=== PATIENT | female | born 1960 | race Caucasian/White ===

== ENCOUNTER 2016-09-12 05:51 | Inpatient (IN) | payer OTHER ==
[2016-09-02 07:32] VITALS: BP 148/100
[~2016-09-12] VITALS: Ht 160 cm; Wt 86.9 kg
[~2016-09-12 05:51] MED LIST: None at this time
[2016-09-12] MEDS ORDERED: LACTATED RINGERS 1,000 ML IV SCH (06:21)
[2016-09-12] MEDS ORDERED: GABA300C10 PO (06:23)
[2016-09-12] MEDS ORDERED: CELEBREX PO (06:23)
[2016-09-12] MEDS ORDERED: LIDOCAINE/PF 1%-EPI 1:200K, 30ML ONE (06:35)
[2016-09-12] MEDS ORDERED: VANCOMYCIN 1,000 MG ONE (06:35)
[2016-09-12] MEDS ORDERED: morphine SULFATE/PF 0.5 MG/ML, 10ML ONE (06:35)
[2016-09-12] MEDS ORDERED: BUPIVACAINE/PF-EPI 0.5% 1:200K ONE (06:36)
[2016-09-12] MEDS ORDERED: GENTAMICIN 80 MG/2 ML ONE (06:36)
[2016-09-12] MEDS ORDERED: THROMBIN 5,000 UNIT VIAL TP ONE (06:36)
[2016-09-12] MEDS ORDERED: BACITRACIN 50,000 UNIT ONE (06:36)
[2016-09-12] MEDS ORDERED: REMIFENTANIL 2 MG ONE ×2 (07:12→08:53)
[2016-09-12] MEDS ORDERED: KETAMINE 10 MG/ML, 20ML ONE ×2 (07:12→07:49)
[2016-09-12] MEDS ORDERED: FENTANYL PF 250 MCG/5ML ONE (07:12)
[2016-09-12] MEDS ORDERED: MIDAZOLAM 1 MG/ML, 2ML ONE (07:12)
[2016-09-12] MEDS ORDERED: CEFAZOLIN 1,000 MG ONE (07:49)
[2016-09-12] MEDS ORDERED: SUCCINYLCHOLINE 20 MG/ML, 10ML ONE (07:49)
[2016-09-12] MEDS ORDERED: NEOSTIGMINE 1 MG/ML, 10ML ONE (07:49)
[2016-09-12] MEDS ORDERED: DEXAMETHASONE 4 MG/ML, 1ML ONE (07:49)
[2016-09-12] MEDS ORDERED: PROPOFOL 10 MG/ML, 20ML ONE (07:49)
[2016-09-12] MEDS ORDERED: ROCURONIUM 10 MG/ML ONE (07:49)
[2016-09-12] MEDS ORDERED: ONDANSETRON 2MG/ML, 2ML ONE (07:49)
[2016-09-12] MEDS ORDERED: FENTANYL PF 100 MCG/2ML ONE ×2 (09:32→12:16)
[2016-09-12] MEDS ORDERED: LABETALOL 5MG/ML, 20ML IV PRN ×2 (10:00→14:00)
[2016-09-12] MEDS ORDERED: OXYcodone 5 MG/5 ML ORAL.SOL UDC PO PRN (10:00)
[2016-09-12] MEDS ORDERED: HYDROmorphone 1 MG/ML, 1ML IV PRN (10:00)
[2016-09-12] MEDS ORDERED: ACETAMINOPHEN 325 MG TABLET PO PRN ×2 (10:00→14:00)
[2016-09-12] MEDS ORDERED: FENTANYL PF 100 MCG/2ML IV PRN (10:00)
[2016-09-12] MEDS ORDERED: ONDANSETRON 2MG/ML, 2ML IVPush PRN (10:00)
[2016-09-12] MEDS ORDERED: hydrALAzine 20 MG/ML, 1ML IV PRN (10:00)
[2016-09-12] MEDS ORDERED: MEPERIDINE/PF 25MG/0.5ML IVPush PRN (10:00)
[2016-09-12] MEDS ORDERED: DIPHENHYDRAMINE 50 MG/ML, 1ML IM ONE (10:00)
[2016-09-12] MEDS ORDERED: HYDROmorphone 1 MG/ML, 1ML ONE (10:57)
[2016-09-12] MEDS: HYDROmorphone 5 MG, BUPIVACAINE/PF 0.5%, 30ML 62.5 ML in SODIUM CHLORIDE 0.9% 182.5 ML EPIDCONT SCH (12:00)
[2016-09-12] MEDS ORDERED: DIAZEPAM 5 MG/ML, 2ML IV PRN (14:00)
[2016-09-12] MEDS ORDERED: DIAZEPAM 5 MG TABLET PO PRN (14:00)
[2016-09-12] MEDS: [UNRECOGNIZED DRUG - REMARK] MC SCH ×2 (14:00→20:46)
[2016-09-12] MEDS ORDERED: PROMETHAZINE 25 MG/ML, 1ML IM PRN (14:00)
[2016-09-12] MEDS ORDERED: ACETAMINOPHEN 650 MG SUPP PR PRN (14:00)
[2016-09-12] MEDS: D5%-0.9% NACL+KCL 20MEQ 1,000 ML IV SCH ×3 (14:00→20:46)
[2016-09-12] MEDS ORDERED: MAGNESIUM HYDROXIDE 8%, 30ML UDC PO PRN (14:00)
[2016-09-12] MEDS ORDERED: DIPHENHYDRAMINE 50 MG/ML, 1ML IVPush PRN (14:30)
[2016-09-12] MEDS ORDERED: DO NOT GIVE MC SCH (14:30)
[2016-09-12] MEDS ORDERED: NALOXONE 0.4 MG/ML, 1ML IV PRN ×2 (14:30)
[2016-09-12] MEDS ORDERED: NALOXONE 0.4 MG/ML, 1ML IVPush PRN (14:30)
[2016-09-12] MEDS ORDERED: EPHEDRINE 50 MG/ML, 1ML IVPush PRN (14:30)
[2016-09-12] MEDS: CEFAZOLIN PMX 1GM/50ML 50 ML IVPB SCH ×2 (16:13→23:53)
[2016-09-12] MEDS: METOCLOPRAMIDE 5 MG/ML, 2ML IV SCH ×2 (16:14→22:26)
[2016-09-12 19:48] VITALS: BP 110/56
[2016-09-12 23:59] VITALS: BP 110/56
[2016-09-13 04:16] VITALS: BP 104/50
[2016-09-13] MEDS: [UNRECOGNIZED DRUG - REMARK] MC SCH ×2 (05:46→14:00)
[2016-09-13] MEDS: METOCLOPRAMIDE 5 MG/ML, 2ML IV SCH (05:50)
[2016-09-13 07:38] VITALS: BP 97/59
[2016-09-13] MEDS: SENNA/DOCUSATE TABLET PO SCH (07:44)
[2016-09-13] MEDS: CEFAZOLIN PMX 1GM/50ML 50 ML IVPB SCH ×3 (07:44→23:48)
[2016-09-13] MEDS: D5%-0.9% NACL+KCL 20MEQ 1,000 ML IV SCH ×3 (10:00→21:05)
[2016-09-13] MEDS: HYDROmorphone 5 MG, BUPIVACAINE/PF 0.5%, 30ML 62.5 ML in SODIUM CHLORIDE 0.9% 182.5 ML EPIDCONT SCH (12:10)
[2016-09-13 14:32] VITALS: BP 136/70
[2016-09-13 19:20] VITALS: BP 92/62
[2016-09-14 02:16] VITALS: BP 99/53
[2016-09-14] MEDS: D5%-0.9% NACL+KCL 20MEQ 1,000 ML IV SCH ×3 (06:00→19:20)
[2016-09-14] MEDS: CEFAZOLIN PMX 1GM/50ML 50 ML IVPB SCH ×2 (07:47→15:39)
[2016-09-14] MEDS: SENNA/DOCUSATE TABLET PO SCH (07:47)
[2016-09-14 08:00] VITALS: BP 126/77
[2016-09-14] MEDS: OXYcodone/APAP 5/325MG TABLET PO PRN ×2 (09:46→21:02)
[2016-09-14] MEDS: HYDROmorphone 5 MG, BUPIVACAINE/PF 0.5%, 30ML 62.5 ML in SODIUM CHLORIDE 0.9% 182.5 ML EPIDCONT SCH (12:00)
[2016-09-14] MEDS ORDERED: HYDROCORTISONE CRM 1%, 30GM TP PRN (14:00)
[2016-09-14 14:30] VITALS: BP 101/52
[2016-09-14 19:18] VITALS: BP 102/68
[2016-09-15] MEDS: CEFAZOLIN PMX 1GM/50ML 50 ML IVPB SCH ×2 (00:12→07:30)
[2016-09-15 01:36] VITALS: BP 92/61
[2016-09-15] MEDS: D5%-0.9% NACL+KCL 20MEQ 1,000 ML IV SCH ×2 (02:00→08:40)
[2016-09-15] MEDS: OXYcodone/APAP 10/325MG TABLET PO SCH ×3 (04:33→12:10)
[2016-09-15 08:00] VITALS: BP 140/74
[2016-09-15] MEDS: SENNA/DOCUSATE TABLET PO SCH (08:42)
[2016-09-15 14:44] VITALS: BP 134/72
== END 2016-09-15 14:40 | disposition home or self-care (01) | DRG 460 ==
LOC: ORIP 05:51 → 4NOR 13:05
PROVIDERS: ADMIT Orthopaedic Surgery Orthopaedic Surgery of the Spine; ATTEND Orthopaedic Surgery Orthopaedic Surgery of the Spine
PROC: 01NB0ZZ Release Lumbar Nerve, Open Approach (ICD-10-PCS; 2016-09-12)
PROC: 01NR0ZZ Release Sacral Nerve, Open Approach (ICD-10-PCS; 2016-09-12)
PROC: 4A11X4G Monitoring of Peripheral Nervous Electrical Activity, Intraoperative, External Approach (ICD-10-PCS; 2016-09-12)
PROC: 0QB30ZZ Excision of Left Pelvic Bone, Open Approach (ICD-10-PCS; 2016-09-12)
PROC: 0SG3071 Fusion of Lumbosacral Joint with Autologous Tissue Substitute, Posterior Approach, Posterior Column, Open Approach (ICD-10-PCS; principal; 2016-09-12 07:30)
DX: M48.06 Spinal stenosis, lumbar region (principal); M47.26 Other spondylosis with radiculopathy, lumbar region; E66.01 Morbid (severe) obesity due to excess calories; Z68.36 Body mass index [BMI] 36.0-36.9, adult; M51.16 Intervertebral disc disorders with radiculopathy, lumbar region; R50.9 Fever, unspecified
CPT/HCPCS: 36415; 72100; 85025; 86850; 86900; 86923; C1713; J0690; J1100; J1170; J2250; J2274; J2405; J2550; J2704; J2710; J3010; J3370; J3490; C1751; C1762; C9362; J0330; J1580; J2765; J7050; J7120